=== PATIENT | male | born 1945 ===

== ENCOUNTER 2021-10-13 13:15 | Inpatient (IN) ==
[2021-10-13] MEDS ORDERED: NS 0.9% 1000 ml BAG 1,000 ML IV ONE (13:17)
[2021-10-13 13:30] LABS: ABS Eosinophils 0.3 10^3/ul (0-0.6); ABS Lymphocytes 1.7 10^3/ul (1.0-4.8); ABS Monocytes 0.9 10^3/ul (0-0.8); Eosinophil % 3.2 %; Hematocrit 33 % (42-52); Lymphocyte % 19.3 %; Mean Corpuscular HGB Conc 33 g/dL (31-36); Mean Corpuscular Hemoglobin 34 pg (27-31); Mean Corpuscular Volume 104 fL (80-94); Mean Platelet Volume 10.1 fL (7.4-10.4); Platelet Count 142 10^3/uL (150-450); Red Blood Count 3.21 10^6 /uL (4.18-5.48); Red Cell Distribution Width 13 % (10-15); White Blood Count 8.9 10^3/uL (3.5-10.8)
[2021-10-13 13:46] LABS: Activated Partial Thrombo Time 27.2 seconds (26.0-38.0); INR 0.97 (0.86-1.15)
[2021-10-13] MEDS ORDERED: Thrombin 5,000 UNITS 1 APPLIC KIT - topical use - TOPICAL ONE ×2 (14:07→14:50)
[2021-10-13] MEDS ORDERED: Mannitol 25% (12.5 GM) 50 ML 12.5 GM/50 ML VIAL ONE ×2 (14:07→14:15)
[2021-10-13] MEDS ORDERED: Lidocaine 2% PF 5 ML VIAL ONE (14:08)
[2021-10-13] MEDS ORDERED: Rocuronium 50 mg VIAL 10 mg/ml 5 ml VIAL (50 mg) ONE (14:08)
[2021-10-13] MEDS ORDERED: Propofol 10 MG/ML 20 ML BTL ONE (14:08)
[2021-10-13] MEDS ORDERED: fentaNYL 100 mcg/2 ml 50 MCG/ML VIAL ONE (14:08)
[2021-10-13] MEDS ORDERED: hydrALAZINE 20 mg/ml 1 ML Vial IV IV SLOW PU ONE (14:13)
[2021-10-13] MEDS ORDERED: hydrALAZINE 20 mg/ml 1 ML Vial IV ONE (14:14)
[2021-10-13 14:15] LABS: Albumin 4.4 g/dL (3.2-5.2); Albumin/Globulin Ratio 1.7 (1-3); Calcium 9.3 mg/dL (8.6-10.3); Globulin 2.6 g/dL (2-4); HDL Cholesterol 73.9 mg/dL; Potassium 3.8 mmol/L (3.5-5.0); Total Bilirubin 0.6 mg/dL (0.2-1.0); eGFR CKD-EPI 67.7 (>60)
[2021-10-13] MEDS ORDERED: levETIRAcetam IV 500 MG/5 ML VIAL ONE (14:15)
[2021-10-13] MEDS ORDERED: Phenylephrine IV 10 MG/ML 1 ml VIAL ONE (14:20)
[2021-10-13] MEDS ORDERED: Gelfoam 12-7 ADSORBABL SPONGE ONE (14:21)
[2021-10-13] MEDS ORDERED: Gelfoam Sponge SIZE 100 SPONGE ONE (14:22)
[2021-10-13] MEDS ORDERED: ceFAZolin 2 GM in NS PREMIX 2 GM/100 ML BAG IVPB ONE (14:33)
[2021-10-13] MEDS ORDERED: Dexamethasone IV 4 MG/ML VIAL 1 ml VIAL ONE (15:15)
[2021-10-13] MEDS ORDERED: Phenylephrine 40 mcg/mL 10mL (400mcg) SYRINGE ONE (15:17)
[2021-10-13] MEDS ORDERED: Acetaminophen IV 1 GM/100ML 100 ML IV ONE (16:22)
[2021-10-13] MEDS ORDERED: Ondansetron 4 mg VIAL 2 MG/ML 2 ml VIAL ONE (16:27)
[2021-10-13] MEDS ORDERED: Ondansetron 4 mg VIAL 2 MG/ML 2 ml VIAL IV PRN (16:47)
[2021-10-13] MEDS: Lactated Ringers 1000 ml BAG 1,000 ML IV SCH (18:15)
[2021-10-13 19:45] LABS: ABS Lymphocytes 0.4 10^3/ul (1.0-4.8); ABS Monocytes 0.1 10^3/ul (0-0.8); ABS Neutrophils 5.6 10^3/ul (1.5-7.7); Eosinophil % 0.2 %; Hematocrit 30 % (42-52); Hemoglobin 10.1 g/dL (14.0-18.0); Lymphocyte % 6.8 %; Mean Corpuscular HGB Conc 34 g/dL (31-36); Mean Corpuscular Hemoglobin 34 pg (27-31); Mean Corpuscular Volume 102 fL (80-94); Platelet Count 126 10^3/uL (150-450); Red Blood Count 2.93 10^6 /uL (4.18-5.48); Red Cell Distribution Width 13 % (10-15); White Blood Count 6.2 10^3/uL (3.5-10.8)
[2021-10-13] MEDS: HYDROcodone/ACETAMIN 5/325 mg TAB PO PRN (23:36)
[2021-10-14 04:32] LABS: Calcium 8.2 mg/dL (8.6-10.3); Potassium 4.3 mmol/L (3.5-5.0); eGFR CKD-EPI 79.4 (>60)
[2021-10-14] MEDS ORDERED: BISOPROLOL HYDROCHLOROTHIAZIDE PO SCH (09:00)
[2021-10-14] MEDS: Lactated Ringers 1000 ml BAG 1,000 ML IV SCH ×2 (09:24→18:50)
[2021-10-14] MEDS: HYDROcodone/ACETAMIN 5/325 mg TAB PO PRN ×2 (12:18→18:53)
[2021-10-15] MEDS: Lactated Ringers 1000 ml BAG 1,000 ML IV SCH ×2 (02:52→18:05)
[2021-10-15 06:05] LABS: ABS Eosinophils 0.2 10^3/ul (0-0.6); ABS Monocytes 0.8 10^3/ul (0-0.8); ABS Neutrophils 3.7 10^3/ul (1.5-7.7); Hematocrit 26 % (42-52); Hemoglobin 8.7 g/dL (14.0-18.0); Lymphocyte % 17.9 %; Mean Corpuscular HGB Conc 34 g/dL (31-36); Mean Corpuscular Hemoglobin 35 pg (27-31); Mean Corpuscular Volume 103 fL (80-94); Mean Platelet Volume 10.6 fL (7.4-10.4); Platelet Count 116 10^3/uL (150-450); Red Blood Count 2.51 10^6 /uL (4.18-5.48); Red Cell Distribution Width 13 % (10-15); White Blood Count 5.8 10^3/uL (3.5-10.8)
[2021-10-15 06:31] LABS: Calcium 8.3 mg/dL (8.6-10.3); Potassium 3.8 mmol/L (3.5-5.0); eGFR CKD-EPI 86.8 (>60)
[2021-10-15 08:47] LABS: Magnesium 1.8 mg/dL (1.9-2.7)
[2021-10-15] MEDS: hydrALAZINE 20 mg/ml 1 ML Vial IV IV SLOW PU PRN (20:16)
[2021-10-16 04:54] LABS: ABS Eosinophils 0.2 10^3/ul (0-0.6); ABS Lymphocytes 0.9 10^3/ul (1.0-4.8); ABS Monocytes 0.8 10^3/ul (0-0.8); Eosinophil % 3.6 %; Hematocrit 26 % (42-52); Hemoglobin 8.8 g/dL (14.0-18.0); Lymphocyte % 17.7 %; Mean Corpuscular HGB Conc 34 g/dL (31-36); Mean Corpuscular Hemoglobin 34 pg (27-31); Mean Corpuscular Volume 101 fL (80-94); Mean Platelet Volume 10.4 fL (7.4-10.4); Platelet Count 132 10^3/uL (150-450); Red Blood Count 2.57 10^6 /uL (4.18-5.48); Red Cell Distribution Width 12 % (10-15); White Blood Count 4.9 10^3/uL (3.5-10.8)
[2021-10-16] MEDS: hydrALAZINE 20 mg/ml 1 ML Vial IV IV SLOW PU PRN ×2 (05:00→16:37)
[2021-10-16] MEDS: HYDROcodone/ACETAMIN 5/325 mg TAB PO PRN (05:05)
[2021-10-16 05:23] LABS: Calcium 8.7 mg/dL (8.6-10.3); Potassium 3.8 mmol/L (3.5-5.0); eGFR CKD-EPI 88.6 (>60)
[2021-10-16] MEDS: Lactated Ringers 1000 ml BAG 1,000 ML IV SCH (07:25)
[2021-10-16 07:34] LABS: Magnesium 1.7 mg/dL (1.9-2.7)
[2021-10-16] MEDS ORDERED: Magnesium Sulfate 2 gm BAG 2 GM/50 ML BAG IVPB ONE (11:08)
[2021-10-16 17:54] LABS: Folate 12.05 ng/mL (5.90-24.80)
[2021-10-17 06:00] LABS: ABS Eosinophils 0.3 10^3/ul (0-0.6); ABS Monocytes 0.7 10^3/ul (0-0.8); Eosinophil % 5.4 %; Hematocrit 29 % (42-52); Hemoglobin 9.6 g/dL (14.0-18.0); Lymphocyte % 19.3 %; Mean Corpuscular HGB Conc 33 g/dL (31-36); Mean Corpuscular Hemoglobin 34 pg (27-31); Mean Corpuscular Volume 102 fL (80-94); Mean Platelet Volume 10.4 fL (7.4-10.4); Platelet Count 159 10^3/uL (150-450); Red Blood Count 2.85 10^6 /uL (4.18-5.48); Red Cell Distribution Width 13 % (10-15); White Blood Count 4.9 10^3/uL (3.5-10.8)
[2021-10-17 06:19] LABS: Calcium 9.2 mg/dL (8.6-10.3); Magnesium 2.2 mg/dL (1.9-2.7); eGFR CKD-EPI 85.7 (>60)
[2021-10-17] MEDS: hydrALAZINE 20 mg/ml 1 ML Vial IV IV SLOW PU PRN (08:24)
[2021-10-17 16:23] VITALS: BP 138/86
== END 2021-10-17 19:10 | disposition home or self-care (01) | DRG 26 ==
LOC: ED 13:15 → OR 14:54 → ICU 18:03 → SSU 10-14 18:16
PROVIDERS: ADMIT Internal Medicine Critical Care Medicine; ATTEND Neurological Surgery